=== PATIENT | male | born 1985 | race African-American/Black ===

== ENCOUNTER 2017-03-21 17:45 | Emergency (ER) | payer SELFPAY ==
[~2017-03-21] VITALS: Ht 175.3 cm; Wt 68.0 kg
[2017-03-21] MEDS ORDERED: IBUPROFEN 600MG TABLET PO ONE (19:30)
[2017-03-21 19:37] VITALS: BP 127/75
== END 2017-03-21 19:56 | disposition home or self-care (01) ==
LOC: ER 18:37
DX: M25.572 Pain in left ankle and joints of left foot (principal); F17.200 Nicotine dependence, unspecified, uncomplicated; F12.10 Cannabis abuse, uncomplicated
CPT/HCPCS: 73610; 99284

== ENCOUNTER 2019-06-10 05:52 | Emergency (ER) | payer SELFPAY ==
[~2019-06-10] VITALS: Ht 175.3 cm; Wt 75.0 kg
[2019-06-10 07:01] VITALS: BP 122/67
== END 2019-06-10 07:02 | disposition home or self-care (01) ==
LOC: ER 05:52
DX: K04.7 Periapical abscess without sinus (principal)
CPT/HCPCS: 99282; 99283

== ENCOUNTER 2019-09-03 06:17 | Emergency (ER) | payer SELFPAY ==
[~2019-09-03] VITALS: Ht 175.3 cm; Wt 68.0 kg
[2019-09-03 06:29] VITALS: BP 141/80
== END 2019-09-03 07:50 | disposition home or self-care (01) ==
LOC: ER 06:17
DX: Z00.00 Encounter for general adult medical examination without abnormal findings (principal); R19.7 Diarrhea, unspecified; E73.9 Lactose intolerance, unspecified; R03.0 Elevated blood-pressure reading, without diagnosis of hypertension; F12.90 Cannabis use, unspecified, uncomplicated
CPT/HCPCS: 99281

== ENCOUNTER 2020-05-14 09:13 | Emergency (ER) | payer SELFPAY ==
[~2020-05-14] VITALS: Ht 177.8 cm; Wt 61.0 kg
[~2020-05-14 09:13] MED LIST: L25 PO; PANT40TA51 MT
[2020-05-14 10:11] LABS: CHLORIDE 81 mEq/L (98-107)
[2020-05-14 10:21] LABS: BASOPHILS % 0.9 % (0.0-2.0); EOSINOPHILS % 0.3 % (0.0-5.0); HEMATOCRIT. 32.1 % (42.0-52.0); HEMOGLOBIN. 10.9 g/dL (14.0-18.0); LYMPHOCYTES % 24.6 % (20.0-50.0); MEAN CORPUSCULAR HEMOGLOBIN 33.2 pg (28.0-32.0); MEAN CORPUSCULAR VOLUME 98.3 fL (80.0-94.0); MONOCYTES % 10.9 % (2.0-8.0); NEUTROPHILS % 63.3 % (40.0-76.0); PLATELET 224 x1000/uL (130-400); RED BLOOD CELL COUNT 3.27 mill/uL (4.7-6.1); RED CELL DISTRIBUTION WIDTH 18.5 % (11.6-14.6)
[2020-05-14 10:24] LABS: CLARITY URINE CLEAR (CLEAR); COLOR URINE DARK YELLOW (YELLOW); KETONES URINE NEGATIVE (NEGATIVE); LEUKOCYTE ESTERASE URINE 1+ (NEGATIVE); NITRITE URINE NEGATIVE (NEGATIVE); OCCULT BLOOD URINE NEGATIVE (NEGATIVE); PH URINE >=9.0 (4.5-8.0); PROTEIN URINE 1+ (NEGATIVE); SPECIFIC GRAVITY URINE 1.017 (1.005-1.030)
[2020-05-14] MEDS ORDERED: POTASSIUM CHLORIDE 20MEQ/PACKET PO ONE (10:45)
[2020-05-14] MEDS ORDERED: POTASSIUM CHLORIDE 20MEQ TABLET SR PO ONE ×2 (10:45→13:45)
[2020-05-14] MEDS ORDERED: POTASSIUM CHLORIDE INJ 40 MEQ in DEXT 5% WATER 500 ML IV ONE (10:45)
[2020-05-14 17:21] VITALS: BP 125/80
== END 2020-05-14 17:23 | disposition home or self-care (01) ==
LOC: ER 09:13
DX: E87.6 Hypokalemia (principal); D64.9 Anemia, unspecified; I45.81 Long QT syndrome
CPT/HCPCS: 36415; 80053; 81003; 84132; 85025; 93005; 96365; 96366; 99285; J3480; J7060

== ENCOUNTER 2020-06-05 08:39 | Inpatient (IN) | payer SELFPAY ==
[~2020-06-05] VITALS: Ht 180.3 cm; Wt 63.5 kg
[2020-06-05 09:57] LABS: BASOPHILS % 0.6 % (0.0-2.0); EOSINOPHILS % 0.2 % (0.0-5.0); HEMATOCRIT. 32.7 % (42.0-52.0); HEMOGLOBIN. 10.8 g/dL (14.0-18.0); LYMPHOCYTES % 21.2 % (20.0-50.0); MEAN CORPUSCULAR HEMOGLOBIN 33.8 pg (28.0-32.0); MEAN CORPUSCULAR VOLUME 101.8 fL (80.0-94.0); MEAN PLATELET VOLUME 8.4 fl (7.4-10.4); MONOCYTES % 11.6 % (2.0-8.0); NEUTROPHILS % 66.4 % (40.0-76.0); PLATELET 214 x1000/uL (130-400); RED BLOOD CELL COUNT 3.21 mill/uL (4.7-6.1); RED CELL DISTRIBUTION WIDTH 20.1 % (11.6-14.6)
[2020-06-05 10:10] LABS: CHLORIDE 85 mEq/L (98-107)
[2020-06-05] MEDS ORDERED: ONDANSETRON HCL 4MG/2ML INJ IV STA (10:34)
[2020-06-05] MEDS ORDERED: KCL 10MEQ/50ML PREMIX 100 ML IV SCH (10:45)
[2020-06-05] MEDS ORDERED: POTASSIUM CHLORIDE 20MEQ TABLET SR PO ONE (10:45)
[2020-06-05] MEDS ORDERED: SODIUM CHLORIDE 0.9% 1,000 ML IV ONE (10:45)
[2020-06-05] MEDS ORDERED: POTASSIUM CHLORIDE 20MEQ TABLET SR PO NR (13:00)
[2020-06-05 13:44] LABS: PHOSPHORUS 3.5 mg/dL (2.5-4.9)
[2020-06-05] MEDS: POTASSIUM CHLORIDE INJ 40 MEQ in SODIUM CHLORIDE 0.9% 1,000 ML IV SCH ×2 (13:58→16:48)
[2020-06-05 15:27] LABS: T4 FREE 1.06 ng/dL (0.76-1.46)
[2020-06-05 16:00] VITALS: BP 105/60
[2020-06-05 16:47] VITALS: BP 105/66
[2020-06-05 17:07] VITALS: BP 105/66
[2020-06-05 20:00] VITALS: BP 108/78
[2020-06-05] MEDS ORDERED: DIPHENHYDRAMINE 50MG/ML VIAL IV PRN (21:45)
[2020-06-05] MEDS ORDERED: NA PHOS,M-B/NA PHOS,DI-BA ENEMA 118ML PR PRN (21:45)
[2020-06-05] MEDS ORDERED: ACETAMINOPHEN 325MG TABLET PO PRN ×2 (21:45)
[2020-06-05] MEDS ORDERED: ACETAMINOPHEN 650MG SUPP PR PRN ×2 (21:45)
[2020-06-05] MEDS ORDERED: ONDANSETRON HCL 4MG/2ML INJ IV PRN (21:45)
[2020-06-05] MEDS ORDERED: ACETAMINOPHEN 650MG/20.3ML UDC GT PRN ×2 (21:45)
[2020-06-05] MEDS ORDERED: SODIUM CHLORIDE 0.9% 1,000 ML IV SCH (21:45)
[2020-06-05] MEDS ORDERED: PANTOPRAZOLE SODIUM 40 MG/VIAL IV SCH (22:00)
[2020-06-06] VITALS: BP 111/72
[2020-06-06 00:11] LABS: CHLORIDE 94 mEq/L (98-107)
== END 2020-06-06 03:35 | disposition left against medical advice (07) | DRG 425 ==
LOC: ER 08:39 → 6WST 12:38 → CANBEDREQ 13:50 → ENRESERV 15:03
PROVIDERS: ADMIT Family Medicine; ATTEND Family Medicine
DX: E87.6 Hypokalemia (principal); E43 Unspecified severe protein-calorie malnutrition; D64.9 Anemia, unspecified; E87.1 Hypo-osmolality and hyponatremia; E87.3 Alkalosis; E87.8 Other disorders of electrolyte and fluid balance, not elsewhere classified; F10.20 Alcohol dependence, uncomplicated; Z53.29 Procedure and treatment not carried out because of patient's decision for other reasons; K70.9 Alcoholic liver disease, unspecified; F41.9 Anxiety disorder, unspecified; K76.0 Fatty (change of) liver, not elsewhere classified; Z83.3 Family history of diabetes mellitus; Z87.11 Personal history of peptic ulcer disease; Z87.19 Personal history of other diseases of the digestive system; Z68.1 Body mass index [BMI] 19.9 or less, adult
CPT/HCPCS: 36415; 71045; 80048; 80053; 83735; 83930; 84100; 84439; 84443; 85025; 93005; 99285; J3480; J7030

== ENCOUNTER 2020-06-23 11:29 | Inpatient (IN) | payer SELFPAY ==
[~2020-06-23] VITALS: Ht 180.3 cm; Wt 62.2 kg
[2020-06-23 13:24] LABS: BASOPHILS % 0.5 % (0.0-2.0); EOSINOPHILS % 0.1 % (0.0-5.0); HEMATOCRIT. 30.7 % (42.0-52.0); HEMOGLOBIN. 10.2 g/dL (14.0-18.0); LYMPHOCYTES % 15.8 % (20.0-50.0); MEAN CORPUSCULAR HEMOGLOBIN 34.2 pg (28.0-32.0); MEAN CORPUSCULAR VOLUME 103.5 fL (80.0-94.0); MEAN PLATELET VOLUME 8.2 fl (7.4-10.4); MONOCYTES % 11.6 % (2.0-8.0); PLATELET 236 x1000/uL (130-400); RED BLOOD CELL COUNT 2.97 mill/uL (4.7-6.1)
[2020-06-23 13:31] LABS: CHLORIDE 78 mEq/L (98-107)
[2020-06-23 13:35] LABS: INR 1.3; PROTHROMBIN TIME 13.3 sec (9.6-11.0)
[2020-06-23] MEDS ORDERED: POTASSIUM CHLORIDE INJ 40 MEQ in DEXT 5% WATER 250 ML IV ONE (13:45)
[2020-06-23] MEDS ORDERED: POTASSIUM CHLORIDE 20MEQ TABLET SR PO ONE (13:45)
[2020-06-23] MEDS ORDERED: CLONIDINE 0.1MG TABLET PO PRN (18:30)
[2020-06-23] MEDS ORDERED: DOCUSATE SODIUM 100MG CAPSULE PO PRN (18:30)
[2020-06-23] MEDS ORDERED: ONDANSETRON HCL 4MG/2ML INJ IV PRN (18:30)
[2020-06-23] MEDS ORDERED: DEXT 5%/0.45% NACL KCL 10MEQ/L 1,000 ML IV SCH (18:30)
[2020-06-23] MEDS ORDERED: ACETAMINOPHEN 325MG TABLET PO PRN (18:30)
[2020-06-23] MEDS ORDERED: MAGNESIUM/ALUMINUM HYDROXIDE/SIMETHICONE 30ML UDC PO PRN (18:30)
[2020-06-23] MEDS: POTASSIUM CHLORIDE 20MEQ TABLET SR PO SCH (18:37)
[2020-06-23 20:37] VITALS: BP 98/65
[2020-06-23] MEDS: DEXT 5%/0.45% NACL KCL 10MEQ/L 1,000 ML IV SCH (22:07)
[2020-06-23] MEDS ORDERED: ZOLPIDEM TARTRATE 5MG TABLET PO PRN (23:30)
[2020-06-24] VITALS: BP 95/63
[2020-06-24 04:30] VITALS: BP 97/64
[2020-06-24] MEDS: DEXT 5%/0.45% NACL KCL 10MEQ/L 1,000 ML IV SCH (06:08)
[2020-06-24 06:56] LABS: BASOPHILS % 0.6 % (0.0-2.0); EOSINOPHILS % 0.8 % (0.0-5.0); HEMATOCRIT. 23.1 % (42.0-52.0); HEMOGLOBIN. 7.8 g/dL (14.0-18.0); LYMPHOCYTES % 29.5 % (20.0-50.0); MEAN CORPUSCULAR VOLUME 103.9 fL (80.0-94.0); MEAN PLATELET VOLUME 8.1 fl (7.4-10.4); NEUTROPHILS % 58.1 % (40.0-76.0); PLATELET 172 x1000/uL (130-400); RED BLOOD CELL COUNT 2.22 mill/uL (4.7-6.1); RED CELL DISTRIBUTION WIDTH 19.9 % (11.6-14.6)
[2020-06-24 07:00] LABS: CHLORIDE 91 mEq/L (98-107)
[2020-06-24 08:00] VITALS: BP 100/71
[2020-06-24] MEDS ORDERED: POTASSIUM CHLORIDE INJ 40 MEQ in DEXT 5% WATER 250 ML IV NR (09:00)
[2020-06-24] MEDS: POTASSIUM CHLORIDE 20MEQ TABLET SR PO SCH (09:28)
[2020-06-24 12:00] VITALS: BP 99/68
[2020-06-24] MEDS ORDERED: POTASSIUM CHLORIDE 20MEQ TABLET SR PO NR (13:00)
== END 2020-06-24 13:24 | disposition left against medical advice (07) | DRG 425 ==
LOC: ER 11:29 → 6WST 14:21 → ENRESERV 19:52
PROVIDERS: ADMIT Hospitalist; ATTEND Hospitalist
DX: E87.6 Hypokalemia (principal); E43 Unspecified severe protein-calorie malnutrition; K75.9 Inflammatory liver disease, unspecified; Z87.11 Personal history of peptic ulcer disease; Z68.1 Body mass index [BMI] 19.9 or less, adult; Z79.899 Other long term (current) drug therapy
CPT/HCPCS: 36415; 80053; 83735; 84484; 85025; 93005; 99291; J3480; J7040; J7060